=== PATIENT | female | born 1940 | race Caucasian/White ===

== ENCOUNTER 2025-01-19 20:51 | Inpatient (IN) | payer MEDICARE, BC ==
[~2025-01-19] VITALS: Ht 152.4 cm; Wt 62.8 kg
--- NOTE | 2025-01-19 23:12 | DVH ---
EXAM: XY R FEMUR XRAY HISTORY: Fall/trauma COMPARISON: None TECHNIQUE: AP and lateral views of the right femur were performed. FINDINGS/IMPRESSION: Mildly displaced subcapital right femoral neck fracture.
--- NOTE | 2025-01-19 23:46 | ED.PDOC ---
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 Patient resides at a nursing facility when she slipped out of her wheelchair and landed on her right hip region. EMS stated the patient was able to stand upright and denied any lays shortening. Patient states continued pain in the right leg and hip at time evaluation. 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 Vital signs were stable on arrival. No blood loss or head trauma noted. Chief Complaint: Lower Extremity Time Seen by MD: 21:13 Reviewed Notes: Nurses Notes, Director [employer] Notes Allergies: Coded Allergies: NO KNOWN ALLERGIES (Unverified , 01/19/25) Information Source: Patient, Emergency Med Personnel Mode of Arrival: EMS Location: Right Extremity Location: Leg Timing: Hours Prehospital treatment: None Severity: Moderate Able to Move Extremity: Yes Bear Weight: Limited Pain: Mild Hand Dominance: Right Mechanism: Blunt Trauma Circumstances: Fall Onset of Symptoms: After Trauma Symptoms: Pain DVT Risk Factors: NONE Past Medical History PAST MEDICAL HISTORY: Alzheimer Surgical History: Denies all surgeries CONTACT LENS POLISHER History: No Pertinent CONTACT LENS POLISHER History Family History Family History: Reviewed,noncontributory to illness, No family hx of Cancer, No family hx of DM, No family hx of Heart sylvia, No family hx of HTN, No family hx ofKidney sylvia, No family hx of Liver sylvia, No family hx of Lung sylvia, No family hx of Stroke Social History Smoker: Non-Smoker Alcohol: Denies ETOH Use Drugs: Denies Drug Use Lives In: Jail Constitutional: denies: chills, diaphoresis, fatigue, fever, malaise, sweats, weakness, others EENTM: denies: blurred vision, double vision, ear bleeding, ear discharge, ear drainage, ear pain, ear ringing, eye pain, eye redness, hearing loss, mouth p ain, mouth swelling, nasal discharge, nose bleeding, nose congestion, nose pain, photophobia, tearing, throat pain, throat swelling, voice changes, others Respiratory: denies: cough, hemoptysis, orthopnea, SOB at rest, shortness of br eath, SOB with excertion, stridor, wheezing, others Cardiovascular: denies: chest pain, dizzy spells, diaphoresis, Dyspnea on exertion, edema, irregular heart beat, left arm pain, lightheadedness, palpitations, PND, syncope, others Gastrointestinal: denies: abdomen distended, abdominal pain, blood streaked bowels, constipated, diarrhea, dysphagia, difficulty swallowing, hematemesis, melena, nausea, poor appetite, poor fluid intake, rectal bleeding, rectal pain, vomiting, others Genitourinary: denies: abnormal vagina bleeding, burning, dyspareunia, dysuria, flank pain, frequency, hematuria, incontinence, pain, , vagina discharge, urgency, others Neurological: denies: dizziness, fainting, headache, left sided numbness, left sided weakness, numbness, paresthesia, pre-existing deficit, right sided numbness, right sided weakness, seizure, speech problems, tingling, tremors, weakness, others Musculoskeletal: reports: others (Right upper leg and hip pain concerns.); denies: back pain, gout, joint pain, joint swelling, muscle pain, muscle stiffness, neck pain Integumetry: denies: bruises, change in color, change in hair/nails, dryness, laceration, lesions, lumps, rash, wounds, others Allergic/Immunocompromised: denies: Difficulty Healing, Frequent Infections, Hives, Itching, others Hematologic/Lymphatic: denies: anemia, blood clots, easy bleeding, easy bruising, swollen glands, others Endocrine: denies: excessive hunger, excessive sweating, excessive thirst, excessive urination, flushing, intolerance to cold, intolerance to heat, unexplained weight gain, unexplained weight loss, others Psychiatric: denies: anxiety, bipolar disorder, depression, hopeless, panic disorder, schizophrenia, sleepless, suicidal, others Physical Exam General Appearance: Mild Distress (Patient appears to be only in mild distress as long as she does not move. Patient declined any pain medication at this time.), Normal HEENT: Normal ENT Inspection, Pharynx Normal, TMs Normal Neck: Full Range of Motion, Non-Tender, Normal, Normal Inspection Respiratory: Chest Non-Tender, Lungs Clear, No Accessory Muscle Use, No Respiratory Distress, Normal Breath Sounds Cardiovascular: No Edema, No JVD, No Murmur, No Gallop, Normal Peripheral Pulses, Regular Rate/Rhythm Breast Exam: Deferred Gastrointestinal: No Organomegaly, Non Tender, No Pulsatile Mass, Normal Bowel Sounds, Soft Genitalia: Deferred Pelvic: Deferred Rectal: Deferred Extremities: Other (Diffuse right lateral leg and hip tenderness to palpation throughout. Moderate reduced range of motion. No shortening or internal rotation noted. No ecchymosis.) Neurologic: NOT DONE Cerebellar Function: NOT DONE Reflexes: NOT DONE Skin: Dry, Normal Color, Warm Lymphatic: No Adenopathy Was a procedure done? Was a procedure done?: No Differential Diagnosis EXT Differential Diagnosis: Fracture, Contusion X-Ray, Labs, Meds, VS Vital Signs Date Time Temp Pulse Resp B/P (MAP) Pulse Ox O2 Delivery O2 Flow Rate FiO2 01/19/25 21:41 98.6 94 16 135/84 (101) 100 X-Ray, Labs, Meds, VS Comment All studies performed the ED were evaluated by me personally. X-ray series of the right femur revealed a mildly displaced subcapital right femoral neck fracture. Patient will be admitted for management with transferred to a [facility] facility once in his deemed appropriate. Time of 1ST Reevaluation: 23:45 Reevaluation 1ST: Unchanged Consultation: PCP Patient Education/Counseling: Diagnosis, Treatment Family Education/Counseling: Diagnosis, Treatment Departure 1 Departure Time of Disposition: 23:45 Impression: Primary Impression: Subcapital fracture of neck of right femur Disposition: ADMITTED INPATIENT Condition: Fair Discharged With: Self Critical Care Note Critical Care Time?: No Stability Stability form required: No Heart Score Heart Score: Heart Score Response (Comments) Value History N/A 0 EKG N/A 0 Age N/A 0 Risk Factors N/A 0 Troponin N/A 0 Total 0 GT BRAY PAC Jan 19, 2025 23:46
[2025-01-19 23:59] LABS: Urine Bacteria None Seen /hpf (None Seen); Urine Blood Negative /uL (Negative); Urine Budding Yeast OCCASIONAL /hpf (None Seen); Urine Clarity Turbid (Clear); Urine Color Light-Yellow (Yellow); Urine Mucus FEW (None Seen); Urine Protein, UAD TRACE (Negative); Urine Specific Gravity 1.033 (1.001-1.035); Urine Squamous Epithelial Cell FEW /hpf (<5); Urine Urobilinogen Normal (Negative); Urine WBC 4 /HPF (0-5); Urine pH 6.5 (5.0-9.0)
[2025-01-20 00:15] LABS: Basophils # (auto) 0.1 10 ^3/uL (0-0.2); Basophils % (auto) 0.6 % (0.0-2.0); Eosinophils # (auto) 0.2 10 ^3/uL (0-0.8); Eosinophils % (auto) 1.6 % (0.0-7.0); Hematocrit 42.5 % (36.0-46.0); Hemoglobin 13.9 g/dL (12.2-16.2); Lymphocytes # (auto) 2.2 10 ^3/uL (0.4-5.4); Lymphocytes % (auto) 15.6 % (10.0-50.0); Mean Corpuscular Hemoglobin 28.5 pg (28.0-32.0); Mean Corpuscular Hgb Conc. 32.6 g/dL (32.0-36.0); Mean Corpuscular Volume 87.5 fL (80.0-100.0); Monocytes # (auto) 0.6 10 ^3/uL (0-1.3); Monocytes % (auto) 4.1 % (0.0-12.0); Neutrophils # (auto) 11.2 10 ^3/uL (1.6-8.6); Neutrophils % (auto) 78.1 % (37.0-80.0); Nucleated Red Blood Cells % 0.1 %; Platelet Count (auto) 231 10^3/uL (140-450); Red Blood Cells 4.86 10^6/uL (4.0-5.20); Red Cell Distribution Width 14.2 % (11.8-14.3); White Blood Cell 14.4 10^3/uL (4.4-10.8)
[2025-01-20 00:28] LABS: Alanine Aminotransferase 15 U/L (7-40); Albumin 4.6 g/dL (3.2-4.8); Alkaline Phosphatase 73 U/L (46-116); Anion Gap 7 (5-15); Aspartate Aminotransferase 24 U/L (13-40); BUN/Creatinine Ratio 25.7 (10.0-20.0); Bilirubin, Total 0.4 mg/dL (0.2-1.0); Blood Urea Nitrogen 18 mg/dL (9-23); Calcium 9.8 mg/dL (8.7-10.4); Carbon Dioxide 28 mmol/L (20-31); Chloride 106 mmol/L (98-107); Glucose 99 mg/dL (74-106); Potassium 3.6 mmol/L (3.5-5.1); Sodium 141 mmol/L (136-145); Total Protein 7.4 g/dL (5.7-8.2)
[2025-01-20 01:50] VITALS: PULSE 88; RESP 18; O2SAT 98
[2025-01-20] MEDS: ONDANSETRON HCL 4 MG/2 ML VIAL IV ONE (02:15)
[2025-01-20] MEDS: MORPHINE SULFATE 4 MG/ML SYR/VIAL IV ONE (02:15)
[2025-01-20] MEDS: HALOPERIDOL LACTATE 5 MG/ML INJ VIAL ONE (02:45)
[2025-01-20] MEDS: QUEtiapine FUMARATE 25 MG TAB PO ONE (03:45)
[2025-01-20] MEDS: cefTRIAXone 1GM/50ML D5W 50 ML IV ONE (04:00)
[2025-01-20] MEDS ORDERED: DOCUSATE SOD 100 MG CAP PO PRN (04:00)
[2025-01-20] MEDS ORDERED: NITROGLYCERIN 0.4 MG SL TAB SL PRN (04:00)
--- NOTE | 2025-01-20 04:03 | DVHHP2 ---
History of Present Illness Reason for Visit: Subcapital fracture of neck of right femur History of Present Illness The patient is a 84-year-old female with past medical history of Alzheimer disease who presented to [facility] ED for evaluation of fall with injury. As reported, patient was complaining of right leg and hip pain status post ground level fall at nursing facility where she resides. Patient slipped out of her wheelchair and landing on her right hip with sustained injury. Patient was seen and evaluated in the ED, laboratory data shows WBC 14.4, platelets 231, sodium 141, potassium 3.6, BUN 18, creatinine 0.70, GFR 85, glucose 99, troponin 3, blood pressure 130/80, heart rate 82, temperature 98.6 F, O2 saturation 99% on room air. Right femur x-ray revealing mildly displaced subcapital right femoral neck fracture. Patient was given IV morphine sulfate 4 mg x 1, please see medication orders section in the computer. On my assessment, patient denied chest pain, no headache, no dizziness, no shortness a breath, no nausea, no vomiting, no fever, no chills. Patient was admitted for further evaluation and medical management. Past Medical History Alzheimer Past Surgical History Denies all surgeries Family History Reviewed, noncontributory to the management of this case. Past Social History The patient lives at home, denies smoking, alcohol or illicit drugs abuse. Review of Systems Constitutional: No: Fever, Chills, Sweats, Weakness, Malaise, Other Eyes: No: Pain, Vision change, Conjunctivae inflammation, Eyelid inflammation, Other, Redness ENT: No: Ear pain, Ear discharge, Nose pain, Nose discharge, Nose congestion, Mouth pain, Mouth swelling, Throat pain, Throat swelling, Other Respiratory: No: Cough, Dry, Shortness of breath, SOB with excertion, Wheezing, Hemoptysis, Pleuritic Pain, Sputum, Wheezing, Other Cardiovascular: No: Chest Pain, Palpitations, Orthopnea, Paroxysmal Noc. Dyspnea, Edema, Lt Headedness, Other Gastrointestinal: No: Nausea, Vomiting, Abdominal Pain, Diarrhea, Constipation, Melena, Hematochezia, Other Genitourinary: No Dysuria, No Frequency, No Incontinence, No Hematuria, No Retention, No Other Musculoskeletal: other (Right upper leg and hip pain.) Skin: No: Rash, Lesions, Jaundice, Bruising, Other Neurological: No: Weakness, Numbness, Incoordination, Change in speech, Confusion, Seizures, Other Allergies: Coded Allergies: NO KNOWN ALLERGIES (Unverified , 01/19/25) Exam Vital Signs Vital Signs Date Time Temp Pulse Resp B/P (MAP) Pulse Ox O2 Delivery O2 Flow Rate FiO2 01/20/25 02:15 82 16 130/80 01/19/25 21:41 98.6 100 General Appearance: Alert, Oriented X3, No acute distress HEENT: Atraumatic, PERRLA, EOMI, Mucous membr. moist/pink Respiratory: Clear to auscultation, Normal air movement Cardiovascular: Regular rate, Normal S1, Normal S2, No murmurs Abdominal: Normal bowel sounds, Soft, No tenderness, No hepatospenomegaly, No masses Extremities: No clubbing, No cyanosis, No edema, Normal pulses, Other (Right hip tenderness) Skin: No rashes, No breakdown, No significant lesion Neuro: Normal gait, Normal speech, Strength at 5/5 X4 ext, Normal tone, Sensation intact, Cranial nerves 3-12 NL, Reflexes 2+ Psych/Mental Status: Mental status NL, Mood NL Labs/Xrays Labs Test 01/20/25 00:56 01/19/25 23:55 01/19/25 23:46 Range/Units Troponin I High Sensitivity 4 </=34 ng/L White Blood Count 14.4 H 4.4-10.8 10^3/uL Red Blood Count 4.86 4.0-5.20 10^6/uL Hemoglobin 13.9 12.2-16.2 g/dL Hematocrit 42.5 36.0-46.0 % Mean Corpuscular Volume 87.5 80.0-100.0 fL Mean Corpuscular Hemoglobin 28.5 28.0-32.0 pg Mean Corpuscular Hemoglobin Concent 32.6 32.0-36.0 g/dL Red Cell Distribution Width 14.2 11.8-14.3 % Platelet Count 231 140-450 10^3/uL Mean Platelet Volume 7.5 6.9-10.8 fL Neutrophils (%) (Auto) 78.1 37.0-80.0 % Lymphocytes (%) (Auto) 15.6 10.0-50.0 % Monocytes (%) (Auto) 4.1 0.0-12.0 % Eosinophils (%) (Auto) 1.6 0.0-7.0 % Basophils (%) (Auto) 0.6 0.0-2.0 % Neutrophils # (Auto) 11.2 H 1.6-8.6 10 ^3/uL Lymphocytes # (Auto) 2.2 0.4-5.4 10 ^3/uL Monocytes # (Auto) 0.6 0-1.3 10 ^3/uL Eosinophils # (Auto) 0.2 0-0.8 10 ^3/uL Basophils # (Auto) 0.1 0-0.2 10 ^3/uL Nucleated Red Blood Cells 0.1 % Sodium Level 141 136-145 mmol/L Potassium Level 3.6 3.5-5.1 mmol/L Chloride Level 106 98-107 mmol/L Carbon Dioxide Level 28 20-31 mmol/L Anion Gap 7 5-15 Blood Urea Nitrogen 18 9-23 mg/dL Creatinine 0.70 0.550-1.02 mg/dL Glomerular Filtration Rate Calc 85 >90 mL/min BUN/Creatinine Ratio 25.7 H 10.0-20.0 Serum Glucose 99 74-106 mg/dL Lactic Acid Level 1.1 0.4-2.0 mmol/L Calcium Level 9.8 8.7-10.4 mg/dL Total Bilirubin 0.4 0.2-1.0 mg/dL Aspartate Amino Transferase (AST) 24 13-40 U/L Alanine Aminotransferase (ALT) 15 7-40 U/L Alkaline Phosphatase 73 46-116 U/L Total Protein 7.4 5.7-8.2 g/dL Albumin 4.6 3.2-4.8 g/dL Urine Color Light-yellow Yellow Urine Clarity Turbid H Clear Urine pH 6.5 5.0-9.0 Urine Specific Gervais 1.033 1.001-1.035 Urine Protein Trace H Negative Urine Ketones Negative Negative Urine Blood Negative Negative /uL Urine Nitrite Negative Negative Urine Bilirubin Negative Negative Urine Urobilinogen Normal Negative mg/dL Urine Leukocyte Esterase Negative Negative /uL Urine RBC 2 0 - 4 /hpf Urine Microscopic WBC 4 0-5 /HPF Urine Squamous Epithelial Cells Few <5 /hpf Urine Bacteria None seen None Seen /hpf Urine Mucus Few None Seen Urine Yeast (Budding) Occasional None Seen /hpf Urine Glucose Normal Normal mg/dL PATIENT: EDGARKENNY BORRERO ACCT: [id number] UNIT: [id number] : 1940 LOC: ER ROOM / BED: / AGE / SEX: 84 / F ADM STATUS: REG ER SERVICE 18 ORDERING PHYSICIAN: GT BRAY PAC PROCEDURE(s): RFEM - R FEMUR XRAY REASON: Fall/trauma ORDER NUMBER(s): [id number], ACCESSION NUMBER(s): [id number] EXAM: XY R FEMUR XRAY HISTORY: Fall/trauma COMPARISON: None TECHNIQUE: AP and lateral views of the right femur were performed. FINDINGS/IMPRESSION: Mildly displaced subcapital right femoral neck fracture. Assessment/Plan Assessment/Plan Subcapital fracture of neck of right femur Fall with injury Alzheimer disease Generalized weakness Leukocytosis, unspecified Plan 1. Admit to telemetry unit 2. Breathing treatment 3. Pain control management 4. IV antibiotic management 5. Management of fluids and electrolytes 6. Consultation for orthopedic 7. Diagnostic test right femur x-ray 8. DVT prophylaxis-on Lovenox 9. Repeat labs CBC, CMP in a.m. 10. Home medication reviewed and reconciled 11. Continue with current medical management 12. Treatment plan discussed with patient and RN. Patient verbalized understanding. Plan discussed with: Patient, Other (RN) My Orders Orders - MARIO POLLOCK DNP Procedure Category Date Status Time * Orthopedic Consult CONS 01/20/25 Verified 03:56 Complete Blood Count LAB 01/20/25 Verified 03:56 Comprehensive LAB 01/20/25 Verified Metabolic Panel 03:56 Ceftriaxone Ivpb PHA 01/20/25 Verified Rocephin 09:00 Ceftriaxone Ivpb PHA 01/20/25 Verified Rocephin 04:00 Admit ADMIT 01/20/25 Verified 03:56 Allergies EVA 01/20/25 Verified 03:56 Code Status CODE 01/20/25 Verified 03:56 Sodium Chloride Lock PHA 01/20/25 Verified (Saline Lock Ns) 06:00 Oxygen Per Hour RT 01/20/25 Verified 03:56 Hydrocodone-Acet PHA 01/20/25 Verified 5/325mg Tab ([place] 04:00 Ondansetron Hcl PHA 01/20/25 Verified (Zofran) 04:00 Docusate Sodium PHA 01/20/25 Verified Capsule (Colace 04:00 Enoxaparin Sodium PHA 01/20/25 Verified (Lovenox) 10:00 Fall Risk Precautions [facility] 01/20/[address] 03:56 Complete Blood Count LAB 01/21/25 Verified 04:00 Comprehensive LAB 01/21/25 Verified Metabolic Panel 04:00 Cardiac DIET 01/20/25 Verified Diet-2gna,Lofat,Lochol Breakfast Condition: Serious EVA 01/20/25 Verified 03:56 Acetaminophen Tablet [facility] 01/20/25 Verified (Tylenol Tablet) 04:00 Sequential EVA 01/20/25 Verified Compression Device Nitroglycerin [facility] 01/20/25 Verified Sublingual (Ntrostat 04:00 Morphine Sulfate PHA 01/20/25 Verified Injection 04:00 Notify Md Of Changes [facility] 01/20/25 Verified From Base 03:56 Paper Tester For [facility] 01/20/25 Verified 24 Hours 03:56 Emergency Dysrhythmia [facility] 01/20/25 Verified Protocol 03:56 Rhythm Strips Once [facility] 01/20/25 Verified Every Shift 03:56 Oxygen By Nasal RT 01/20/25 Verified Cannula 03:56 Problem List: (1) Subcapital fracture of neck of right femur (2) Fall with injury (3) Alzheimers disease (4) Generalized weakness (5) Leukocytosis, unspecified Date of Service: Jan 20, 2025 Billing Provider: MARIO POLLOCK DNP Common Visit Codes: [id number] INP/OBS CARE (HIGH) MARIO POLLOCK DNP Jan 20, 2025 04:03
[2025-01-20 04:30] LABS: Basophils # (auto) 0.1 10 ^3/uL (0-0.2); Basophils % (auto) 0.5 % (0.0-2.0); Eosinophils # (auto) 0.1 10 ^3/uL (0-0.8); Eosinophils % (auto) 0.6 % (0.0-7.0); Hematocrit 38.1 % (36.0-46.0); Hemoglobin 12.5 g/dL (12.2-16.2); Lymphocytes # (auto) 1.1 10 ^3/uL (0.4-5.4); Lymphocytes % (auto) 10.5 % (10.0-50.0); Mean Corpuscular Hemoglobin 28.5 pg (28.0-32.0); Mean Corpuscular Hgb Conc. 32.9 g/dL (32.0-36.0); Mean Corpuscular Volume 86.7 fL (80.0-100.0); Monocytes # (auto) 0.4 10 ^3/uL (0-1.3); Monocytes % (auto) 4.1 % (0.0-12.0); Neutrophils % (auto) 84.3 % (37.0-80.0); Nucleated Red Blood Cells % 0.1 %; Platelet Count (auto) 198 10^3/uL (140-450); Red Blood Cells 4.39 10^6/uL (4.0-5.20); Red Cell Distribution Width 14.5 % (11.8-14.3); White Blood Cell 10.7 10^3/uL (4.4-10.8)
[2025-01-20 04:45] LABS: Alanine Aminotransferase 13 U/L (7-40); Albumin 3.9 g/dL (3.2-4.8); Alkaline Phosphatase 63 U/L (46-116); Anion Gap 9 (5-15); Aspartate Aminotransferase 22 U/L (13-40); BUN/Creatinine Ratio 26.7 (10.0-20.0); Bilirubin, Total 0.5 mg/dL (0.2-1.0); Blood Urea Nitrogen 16 mg/dL (9-23); Calcium 9.3 mg/dL (8.7-10.4); Carbon Dioxide 25 mmol/L (20-31); Potassium 3.7 mmol/L (3.5-5.1); Sodium 141 mmol/L (136-145); Total Protein 6.4 g/dL (5.7-8.2)
[2025-01-20 04:58] LABS: Chloride 107 mmol/L (98-107); Glucose 118 mg/dL (74-106)
[2025-01-20] MEDS: MORPHINE SULFATE INJ 2 MG/ml SYRG IV PRN (05:03)
[2025-01-20] MEDS: cefTRIAXone 1GM/50ML D5W 50 ML IV SCH (05:03)
[2025-01-20] MEDS: ONDANSETRON HCL 4 MG/2 ML VIAL IV PRN (05:04)
[2025-01-20] MEDS: SODIUM CHLOR 0.9% PF (SALINE LOCK) 10ML VIAL/SYR IV SCH (06:10)
[2025-01-20 10:12] VITALS: PULSE 88; RESP 18; O2SAT 100
[2025-01-20] MEDS: ENOXAPARIN SOD 40 MG/0.4 ML SYRINGE SC SCH (11:25)
--- NOTE | 2025-01-20 13:35 | DVHPN2 ---
Reviewed: Care Plan, H&P, Labs, Medications, Previous Orders, Radiology Changes from previous H/P or p: No Changes Eyes: No Pain, No Vision change, No Conjunctivae inflammation, No Eyelid inflammation, No Other, No Redness ENT: No Ear pain, No Ear discharge, No Nose pain, No Nose discharge, No Nose congestion, No Mouth pain, No Mouth swelling, No Throat pain, No Throat swelling, No Other Cardiovascular: No Chest Pain, No Palpitations, No Orthopnea, No Paroxysmal Noc. Dyspnea, No Edema, No Lt Headedness, No Other Respiratory: No Cough, No Dry, No Shortness of breath, No SOB with excertion, No Wheezing, No Hemoptysis, No Pleuritic Pain, No Sputum, No Other Gastrointestinal: No Nausea, No Vomiting, No Abdominal Pain, No Diarrhea, No Constipation, No Melena, No Hematochezia, No Other Genitourinary: No Dysuria, No Frequency, No Incontinence, No Hematuria, No Retention, No Other Musculoskeletal: other (Right upper leg and hip pain.) Skin: No Rash, No Lesions, No Jaundice, No Bruising, No Other Objective Vitals Vital Signs Date Time Temp Pulse Resp B/P (MAP) Pulse Ox O2 Delivery O2 Flow Rate FiO2 01/20/25 12:00 93 16 151/72 (98) 99 01/20/25 10:12 97.8 97.8 01/20/25 10:12 Nasal Cannula* 2 28 Medications Current Medications Medications Dose Ordered Sig/Jimmie Route Start Time Stop Time Status Last Admin Dose Admin Ceftriaxone Sodium 50 ml @ 100 mls/hr DAILY@0400 IV 01/21/25 04:00 01/20/25 05:03 100 MLS/HR Sodium Chloride 10 ml Q8HR IV 01/20/25 06:00 01/20/25 06:10 10 ML Acetaminophen/ Hydrocodone Bitart 1 tab Q4HP PRN PO 01/20/25 04:00 Ondansetron HCl 4 mg Q4HP PRN IV 01/20/25 04:00 01/20/25 05:04 4 MG Docusate Sodium 100 mg BIDPRN PRN PO 01/20/25 04:00 Enoxaparin Sodium 40 mg DAILY SC 01/20/25 10:00 01/20/25 11:25 40 MG Acetaminophen 650 mg Q6HP PRN PO 01/20/25 04:00 Nitroglycerin 0.4 mg Q5MINP PRN SL 01/20/25 04:00 Morphine Sulfate 2 mg Q30M PRN IV 01/20/25 04:00 01/20/25 05:03 2 MG Laboratory Results Laboratory Tests 01/20/25 04:14 Chemistry Test 01/19/25 23:55 01/20/25 04:14 Albumin 4.6 g/dL (3.2-4.8) 3.9 g/dL (3.2-4.8) Calcium Level 9.8 mg/dL (8.7-10.4) 9.3 mg/dL (8.7-10.4) Total Protein 7.4 g/dL (5.7-8.2) 6.4 g/dL (5.7-8.2) LFT Test 01/19/25 23:55 01/20/25 04:14 Alanine Aminotransferase (ALT) 15 U/L (7-40) 13 U/L (7-40) Alkaline Phosphatase 73 U/L (46-116) 63 U/L (46-116) Aspartate Amino Transferase (AST) 24 U/L (13-40) 22 U/L (13-40) Total Bilirubin 0.4 mg/dL (0.2-1.0) 0.5 mg/dL (0.2-1.0) Urinalysis Test 01/19/25 23:46 Urine Color Light-yellow (Yellow) Urine Clarity Turbid (Clear) H Urine pH 6.5 (5.0-9.0) Urine Specific Perry 1.033 (1.001-1.035) Urine Protein Trace (Negative) H Urine Ketones Negative (Negative) Urine Blood Negative /uL (Negative) Urine Nitrite Negative (Negative) Urine Bilirubin Negative (Negative) Urine Urobilinogen Normal mg/dL (Negative) Urine Leukocyte Esterase Negative /uL (Negative) Urine RBC 2 /hpf (0 - 4) Urine Microscopic WBC 4 /HPF (0-5) Urine Squamous Epithelial Cells Few /hpf (<5) Urine Bacteria None seen /hpf (None Seen) Urine Mucus Few (None Seen) Urine Yeast (Budding) Occasional /hpf (None Urine Glucose Normal mg/dL (Normal) Labs and/or images reviewed: Labs reviewed by me, Image(s) reviewed by me Assessment/Plan Assessment/Plan Subcapital fracture neck of right femur consult for Rock Bowman Sepsis secondary to urinary tract infection: Blood cultures urine cultures Rocephin Fall with injury Alzheimer disease Generalized weakness Moderate malnutrition Time spent 45 minutes Patient is full code Advanced care planning time 20 minutes Plan discussed with: Patient My Orders Orders - ALPA JEREZ MD Procedure Category Date Status Time Blood Culture SAVANNAH 01/20/25 Logged 13:31 Urine Bacterial SAVANNAH 01/20/25 Logged Culture 13:31 * Orthopedic Consult CONS 01/20/25 Verified 13:32 Date of Service: Jan 20, 2025 Billing Provider: ALPA JEREZ MD Common Visit Codes: [id number] INP/OBS CARE(HIGH) Secondary Visit Codes: [id number] CARE PLAN 30 MINUTES ALPA JEREZ MD Jan 20, 2025 13:35
--- NOTE | 2025-01-20 15:22 | DVH ---
INDICATION: fx femur COMPARISON: None TECHNIQUE: CT of the right was performed without contrast. Volume transverse images were obtained and reconstructed in multiple planes using bone and soft tissue algorithms. CONTRAST: None Radiation Dose Information: CT Dose: CTDI volume is 7.91 mGy. Dose-length product is 177.29 mGy*cm FINDINGS: The alignment is normal. The joint spaces are normal. Mildly displaced subcapital fracture proximal right femur The soft tissues are normal. IMPRESSION: 1. Mildly displaced subcapital fracture proximal right femur. All CT scans at this medical facility are performed using dose modulation techniques as appropriate t o a performed exam including the following: Automated exposure control was utilized; adjustment of th e MA and/or KV according to patient size; and use of iterative reconstruction technique.
[2025-01-20 16:11] VITALS: BP 154/78; PULSE 95; RESP 18; TEMP 98.3; O2SAT 92
[2025-01-20 20:00] VITALS: PULSE 51; RESP 19; O2SAT 95
[2025-01-20 21:00] VITALS: BP 157/61; PULSE 51; RESP 19; TEMP 98.1; O2SAT 95
[2025-01-21] VITALS (9 sets, daily range): BP systolic 129–158; BP diastolic 72–99; PULSE 70–96; RESP 18–19; TEMP 97.9–98.3; O2SAT 90–98
--- NOTE | 2025-01-21 11:25 | DVHPN2 ---
Reviewed: Care Plan, H&P, Labs, Medications, Previous Orders, Radiology Changes from previous H/P or p: No Changes Eyes: No Pain, No Vision change, No Conjunctivae inflammation, No Eyelid inflammation, No Other, No Redness ENT: No Ear pain, No Ear discharge, No Nose pain, No Nose discharge, No Nose congestion, No Mouth pain, No Mouth swelling, No Throat pain, No Throat swelling, No Other Cardiovascular: No Chest Pain, No Palpitations, No Orthopnea, No Paroxysmal Noc. Dyspnea, No Edema, No Lt Headedness, No Other Respiratory: No Cough, No Dry, No Shortness of breath, No SOB with excertion, No Wheezing, No Hemoptysis, No Pleuritic Pain, No Sputum, No Other Gastrointestinal: No Nausea, No Vomiting, No Abdominal Pain, No Diarrhea, No Constipation, No Melena, No Hematochezia, No Other Genitourinary: No Dysuria, No Frequency, No Incontinence, No Hematuria, No Retention, No Other Musculoskeletal: other (Right upper leg and hip pain.) Skin: No Rash, No Lesions, No Jaundice, No Bruising, No Other Objective Vitals Vital Signs Date Time Temp Pulse Resp B/P (MAP) Pulse Ox O2 Delivery O2 Flow Rate FiO2 01/21/25 09:00 97.9 94 18 148/82 (104) 97 97.9 01/21/25 08:15 Nasal Cannula* 2 28 Intake/Output Intake and Output 01/21/25 07:00 Intake Total 60 ml Output Total 900 ml Balance -840 ml Intake Oral 60 ml Output Urine Total 900 ml Medications Current Medications Medications Dose Ordered Sig/Jimmie Route Start Time Stop Time Status Last Admin Dose Admin Ceftriaxone Sodium 50 ml @ 100 mls/hr DAILY@0400 IV 01/21/25 04:00 01/20/25 05:03 100 MLS/HR Sodium Chloride 10 ml Q8HR IV 01/20/25 06:00 01/21/25 06:31 10 ML Acetaminophen/ Hydrocodone Bitart 1 tab Q4HP PRN PO 01/20/25 04:00 Ondansetron HCl 4 mg Q4HP PRN IV 01/20/25 04:00 01/20/25 05:04 4 MG Docusate Sodium 100 mg BIDPRN PRN PO 01/20/25 04:00 Enoxaparin Sodium 40 mg DAILY SC 01/20/25 10:00 01/21/25 09:54 40 MG Acetaminophen 650 mg Q6HP PRN PO 01/20/25 04:00 Nitroglycerin 0.4 mg Q5MINP PRN SL 01/20/25 04:00 Morphine Sulfate 2 mg Q30M PRN IV 01/20/25 04:00 01/20/25 05:03 2 MG Laboratory Results Laboratory Tests 01/20/25 04:14 Urinalysis Test 01/19/25 23:46 Urine Color Light-yellow (Yellow) Urine Clarity Turbid (Clear) H Urine pH 6.5 (5.0-9.0) Urine Specific [place] 1.033 (1.001-1.035) Urine Protein Trace (Negative) H Urine Ketones Negative (Negative) Urine Blood Negative /uL (Negative) Urine Nitrite Negative (Negative) Urine Bilirubin Negative (Negative) Urine Urobilinogen Normal mg/dL (Negative) Urine Leukocyte Esterase Negative /uL (Negative) Urine RBC 2 /hpf (0 - 4) Urine Microscopic WBC 4 /HPF (0-5) Urine Squamous Epithelial Cells Few /hpf (<5) Urine Bacteria None seen /hpf (None Seen) Urine Mucus Few (None Seen) Urine Yeast (Budding) Occasional /hpf (None Urine Glucose Normal mg/dL (Normal) Labs and/or images reviewed: Labs reviewed by me, Image(s) reviewed by me Assessment/Plan Assessment/Plan Acute nondisplaced Subcapital fracture neck of right femur consult for [facility]man morphine Sepsis secondary to urinary tract infection: Blood cultures, urine cultures , continue Rocephin Fall with injury Alzheimer disease Generalized weakness Moderate malnutrition Time spent 45 minutes Patient is full code Advanced care planning time 20 minutes [facility] Grand daughter Chaya [phone] bedside Son and POA Bronson [phone] Plan discussed with: Patient My Orders Orders - ALPA JEREZ MD Procedure Category Date Status Time Blood Culture SAVANNAH 01/20/25 In Process 13:31 Urine Bacterial SAVANNAH 01/20/25 In Process Culture 13:31 * Orthopedic Consult CONS 01/20/25 Transmitted 13:32 Ct R Hip With Out CT 01/20/25 Resulted Contrast 14:24 Date of Service: Jan 21, 2025 Billing Provider: ALPA JEREZ MD Common Visit Codes: [id number] INP/OBS CARE(HIGH) ALPA JEREZ MD Jan 21, 2025 11:25
[2025-01-21 13:39] LABS: Basophils # (auto) 0 10 ^3/uL (0-0.2); Basophils % (auto) 0.4 % (0.0-2.0); Eosinophils # (auto) 0.1 10 ^3/uL (0-0.8); Eosinophils % (auto) 0.7 % (0.0-7.0); Hematocrit 39.1 % (36.0-46.0); Lymphocytes # (auto) 1.1 10 ^3/uL (0.4-5.4); Lymphocytes % (auto) 13.8 % (10.0-50.0); Mean Corpuscular Hemoglobin 28.7 pg (28.0-32.0); Mean Corpuscular Hgb Conc. 33.2 g/dL (32.0-36.0); Mean Corpuscular Volume 86.3 fL (80.0-100.0); Monocytes # (auto) 0.6 10 ^3/uL (0-1.3); Monocytes % (auto) 6.9 % (0.0-12.0); Neutrophils # (auto) 6.3 10 ^3/uL (1.6-8.6); Neutrophils % (auto) 78.2 % (37.0-80.0); Nucleated Red Blood Cells % 0.1 %; Platelet Count (auto) 194 10^3/uL (140-450); Red Blood Cells 4.53 10^6/uL (4.0-5.20); Red Cell Distribution Width 13.9 % (11.8-14.3)
[2025-01-21 13:57] LABS: Alanine Aminotransferase 13 U/L (7-40); Albumin 3.8 g/dL (3.2-4.8); Alkaline Phosphatase 66 U/L (46-116); Anion Gap 7 (5-15); Aspartate Aminotransferase 25 U/L (13-40); BUN/Creatinine Ratio 21.2 (10.0-20.0); Blood Urea Nitrogen 14 mg/dL (9-23); Calcium 9.2 mg/dL (8.7-10.4); Carbon Dioxide 30 mmol/L (20-31); Chloride 102 mmol/L (98-107); Potassium 3.9 mmol/L (3.5-5.1); Sodium 139 mmol/L (136-145)
[2025-01-21 13:58] LABS: Bilirubin, Total 0.7 mg/dL (0.2-1.0); Total Protein 6.3 g/dL (5.7-8.2)
[2025-01-21 14:00] LABS: Glucose 111 mg/dL (74-106)
[2025-01-21] MEDS ORDERED: QUET25TA37 PO (16:32)
[2025-01-21] MEDS ORDERED: MEMA1TAB3 PO (16:33)
[2025-01-22] VITALS (8 sets, daily range): BP systolic 123–154; BP diastolic 62–88; PULSE 85–104; RESP 17–19; TEMP 98–98.9; O2SAT 92–98
[2025-01-22] MEDS: HYDROcodone-ACET 5/325MG TAB PO PRN (00:07)
--- NOTE | 2025-01-22 07:09 | DVHINCON2 ---
Date of service: Jan 21, 2025 Reason for Consultation Right femoral neck fracture History of Present Illness 84 yo F with pain in right hip/ hx of dementia/ patient does bear weight on right leg/ no cp/sob/abd pain/nasuea Past Medical History Past Medical History Alzheimer Past Surgical History Denies all surgeries Family History Reviewed, noncontributory to the management of this case. Past Social History The patient lives at home, denies smoking, alcohol or illicit drugs abuse. Family History: Chronic obstructive pulmonary disease G8 FATHER Allergies: Coded Allergies: NO KNOWN ALLERGIES (Unverified , 01/19/25) Home Meds Reported Medications Memantine Hydrochloride (Memantine HCl) 5 Mg Tab, 5 MG PO DAILY, TAB 01/21/25 Quetiapine Fumerate (Seroquel) 25 Mg Tab, 25 MG PO BID for 30 Days, MG 01/21/25 Review of Systems 10 point ROS is neg except per HPI Vital Signs Vital Signs Date Time Temp Pulse Resp B/P (MAP) Pulse Ox O2 Delivery O2 Flow Rate FiO2 01/22/25 05:00 98.0 85 17 123/62 (82) 95 98.0 01/21/25 20:00 Nasal Cannula* 2 28 Physical Exam NAD dementia RLE: no rotational deformity +ta/gs/ehl/fhl foot wwp Labs/Diagnostic Data Labs Test 01/21/25 13:00 01/20/25 00:56 01/19/25 23:55 01/19/25 23:46 Range/Units White Blood Count 8.0 # 4.4-10.8 10^3/uL Red Blood Count 4.53 4.0-5.20 10^6/uL Hemoglobin 13.0 12.2-16.2 g/dL Hematocrit 39.1 36.0-46.0 % Mean Corpuscular Volume 86.3 80.0-100.0 fL Mean Corpuscular Hemoglobin 28.7 28.0-32.0 pg Mean Corpuscular Hemoglobin Concent 33.2 32.0-36.0 g/dL Red Cell Distribution Width 13.9 11.8-14.3 % Platelet Count 194 140-450 10^3/uL Mean Platelet Volume 7.7 6.9-10.8 fL Neutrophils (%) (Auto) 78.2 37.0-80.0 % Lymphocytes (%) (Auto) 13.8 10.0-50.0 % Monocytes (%) (Auto) 6.9 0.0-12.0 % Eosinophils (%) (Auto) 0.7 0.0-7.0 % Basophils (%) (Auto) 0.4 0.0-2.0 % Neutrophils # (Auto) 6.3 1.6-8.6 10 ^3/uL Lymphocytes # (Auto) 1.1 0.4-5.4 10 ^3/uL Monocytes # (Auto) 0.6 0-1.3 10 ^3/uL Eosinophils # (Auto) 0.1 0-0.8 10 ^3/uL Basophils # (Auto) 0 0-0.2 10 ^3/uL Nucleated Red Blood Cells 0.1 % Sodium Level 139 136-145 mmol/L Potassium Level 3.9 3.5-5.1 mmol/L Chloride Level 102 98-107 mmol/L Carbon Dioxide Level 30 20-31 mmol/L Anion Gap 7 5-15 Blood Urea Nitrogen 14 9-23 mg/dL Creatinine 0.66 0.550-1.02 mg/dL Glomerular Filtration Rate Calc 86 >90 mL/min BUN/Creatinine Ratio 21.2 H 10.0-20.0 Serum Glucose 111 H 74-106 mg/dL Calcium Level 9.2 8.7-10.4 mg/dL Total Bilirubin 0.7 0.2-1.0 mg/dL Aspartate Amino Transferase (AST) 25 13-40 U/L Alanine Aminotransferase (ALT) 13 7-40 U/L Alkaline Phosphatase 66 46-116 U/L Total Protein 6.3 5.7-8.2 g/dL Albumin 3.8 3.2-4.8 g/dL Troponin I High Sensitivity 4 </=34 ng/L Lactic Acid Level 1.1 0.4-2.0 mmol/L Urine Color Light-yellow Yellow Urine Clarity Turbid H Clear Urine pH 6.5 5.0-9.0 Urine Specific [place] 1.033 1.001-1.035 Urine Protein Trace H Negative Urine Ketones Negative Negative Urine Blood Negative Negative /uL Urine Nitrite Negative Negative Urine Bilirubin Negative Negative Urine Urobilinogen Normal Negative mg/dL Urine Leukocyte Esterase Negative Negative /uL Urine RBC 2 0 - 4 /hpf Urine Microscopic WBC 4 0-5 /HPF Urine Squamous Epithelial Cells Few <5 /hpf Urine Bacteria None seen None Seen /hpf Urine Mucus Few None Seen Urine Yeast (Budding) Occasional None Seen /hpf Urine Glucose Normal Normal mg/dL Microbiology Date/Time Source Procedure Growth Status 01/20/25 15:25 Blood Blood Culture - Preliminary NO GROWTH AFTER 24 HOURS OF INCUBATION. Resulted 01/20/25 14:00 Voided Urine Urine Culture - Preliminary Resulted Plan/Recommendation 84 yo F with nondisplaced right femoral neck fracture 1. I had a long and thorough discussion with patient family regarding her condition. Nonoperative and operative management discussed in depth. Morbidity and mortality of hip fractures reviewed. Risks include but not exclusive to bleeding infection nerve injury hardware failure nonunion malunion chronic pain blood clots cardiac and pulmonary complications amputation and . They understand fracture may not heal and it may displace. 2. Plan for open reduction internal fixation of right hip fracture 3. NPO/IVF 4. pain control Plan discussed with: Patient BERLIN MCGINNIS MD Jan 22, 2025 07:09
--- NOTE | 2025-01-22 10:43 | DVHINCON2 ---
Date Seen: Jan 22, 2025 Referring Physician MD Tyrone Reason for Consultation Cardiac risk stratification History of Present Illness This is an 84-year-old female patient who presents to the emergency room status post mechanical fall. The patient comes from an assisted living facility "[facility]". The patient has a history of dementia and is unable to provide an accurate history. The patient's son who was at bedside was able to provide history. Per the patient's son, the patient sustained a mechanical fall at the assisted living facility where she resides. The nursing staff they are called emergency medical services and the patient was brought to the emergency room. Imaging has revealed a mildly displaced subcapital right femoral neck fracture. Cardiology has been consulted at this time for cardiac risk stratification. No twelve lead electrocardiogram done while in the emergency room. A twelve lead electrocardiogram was obtained at time of assessment and reveals normal sinus rhythm with inferior Q-waves. Significant past medical history includes dementia. The patient's son denies all other previous medical history. Past Medical History Past medical history reviewed. No other significant than mentioned above. Past Surgical History Patient's son states that the patient never has had any surgical history Family History: Chronic obstructive pulmonary disease G8 FATHER Family History Family history reviewed. Social History Denies the use of tobacco, alcohol or illicit drugs. Allergies: Coded Allergies: NO KNOWN ALLERGIES (Unverified , 01/19/25) Home Meds Reported Medications Memantine Hydrochloride (Memantine HCl) 5 Mg Tab, 5 MG PO DAILY, TAB 01/21/25 Quetiapine Fumerate (Seroquel) 25 Mg Tab, 25 MG PO BID for 30 Days, MG 01/21/25 Home Meds Home medications reviewed. Review of Systems Constitutional: No symptom reported Ears, Nose, & Throat: No symptom reported Eyes: No symptom reported Neurological: No symptoms reported Pulmonary/Respiratory: No symptoms reported Cardiovascular: No symptom reported Gastrointestinal: No symptom reported Genitourinary: No symptom reported Musculoskeletal: Right hip pain Skin: No symptom reported Psychiatric: No symptom reported Endocrine: No symptom reported Hematologic/Lymphatic: No symptom reported Vital Signs Vital Signs Date Time Temp Pulse Resp B/P (MAP) Pulse Ox O2 Delivery O2 Flow Rate FiO2 01/22/25 10:06 98.2 91 19 154/88 (110) 92 98.2 01/21/25 20:00 Nasal Cannula* 2 28 Physical Exam General Appearance: Cooperative. Thin Pulmonary/Respiratory: Clear, bilateral breaths sounds. Cardiovascular/Chest: Regular rate and rhythm. Peripheral Pulses: 2+ Radial (R). 2+ Radial (L). 2+ Pedal (R). 2+ Pedal (L) Abdominal Exam: Normal bowel sounds. Ankle Exam: Negative ankle edema Lower extremities: Negative lower extremity edema Neuro/Mental Status: A/OX0, confused Thoughts/Psych: Deferred Appearance: No acute distress. Skin Exam: Normal inspection. Normal color. Warm and dry. Labs/Diagnostic Data Labs Test 01/21/25 13:00 01/20/25 00:56 01/19/25 23:55 01/19/25 23:46 Range/Units White Blood Count 8.0 # 4.4-10.8 10^3/uL Red Blood Count 4.53 4.0-5.20 10^6/uL Hemoglobin 13.0 12.2-16.2 g/dL Hematocrit 39.1 36.0-46.0 % Mean Corpuscular Volume 86.3 80.0-100.0 fL Mean Corpuscular Hemoglobin 28.7 28.0-32.0 pg Mean Corpuscular Hemoglobin Concent 33.2 32.0-36.0 g/dL Red Cell Distribution Width 13.9 11.8-14.3 % Platelet Count 194 140-450 10^3/uL Mean Platelet Volume 7.7 6.9-10.8 fL Neutrophils (%) (Auto) 78.2 37.0-80.0 % Lymphocytes (%) (Auto) 13.8 10.0-50.0 % Monocytes (%) (Auto) 6.9 0.0-12.0 % Eosinophils (%) (Auto) 0.7 0.0-7.0 % Basophils (%) (Auto) 0.4 0.0-2.0 % Neutrophils # (Auto) 6.3 1.6-8.6 10 ^3/uL Lymphocytes # (Auto) 1.1 0.4-5.4 10 ^3/uL Monocytes # (Auto) 0.6 0-1.3 10 ^3/uL Eosinophils # (Auto) 0.1 0-0.8 10 ^3/uL Basophils # (Auto) 0 0-0.2 10 ^3/uL Nucleated Red Blood Cells 0.1 % Sodium Level 139 136-145 mmol/L Potassium Level 3.9 3.5-5.1 mmol/L Chloride Level 102 98-107 mmol/L Carbon Dioxide Level 30 20-31 mmol/L Anion Gap 7 5-15 Blood Urea Nitrogen 14 9-23 mg/dL Creatinine 0.66 0.550-1.02 mg/dL Glomerular Filtration Rate Calc 86 >90 mL/min BUN/Creatinine Ratio 21.2 H 10.0-20.0 Serum Glucose 111 H 74-106 mg/dL Calcium Level 9.2 8.7-10.4 mg/dL Total Bilirubin 0.7 0.2-1.0 mg/dL Aspartate Amino Transferase (AST) 25 13-40 U/L Alanine Aminotransferase (ALT) 13 7-40 U/L Alkaline Phosphatase 66 46-116 U/L Total Protein 6.3 5.7-8.2 g/dL Albumin 3.8 3.2-4.8 g/dL Troponin I High Sensitivity 4 </=34 ng/L Lactic Acid Level 1.1 0.4-2.0 mmol/L Urine Color Light-yellow Yellow Urine Clarity Turbid H Clear Urine pH 6.5 5.0-9.0 Urine Specific [place] 1.033 1.001-1.035 Urine Protein Trace H Negative Urine Ketones Negative Negative Urine Blood Negative Negative /uL Urine Nitrite Negative Negative Urine Bilirubin Negative Negative Urine Urobilinogen Normal Negative mg/dL Urine Leukocyte Esterase Negative Negative /uL Urine RBC 2 0 - 4 /hpf Urine Microscopic WBC 4 0-5 /HPF Urine Squamous Epithelial Cells Few <5 /hpf Urine Bacteria None seen None Seen /hpf Urine Mucus Few None Seen Urine Yeast (Budding) Occasional None Seen /hpf Urine Glucose Normal Normal mg/dL Microbiology Date/Time Source Procedure Growth Status 01/20/25 15:25 Blood Blood Culture - Preliminary NO GROWTH AFTER 24 HOURS OF INCUBATION. Resulted 01/20/25 14:00 Voided Urine Urine Culture - Preliminary Resulted Assessment Preprocedural cardiovascular examination Mildly displaced subcapital right femoral neck fracture Dementia Plan/Recommendation We will continue with the following plan/recommendations (Dr. Post): Transthoracic echocardiogram reveals EF of 65%. Revised cardiac risk index (Ld criteria): 1 point (6.0% risk of major cardiac event). Chest x-ray shows no ac elia cardiopulmonary disease. There is no underlying history of congestive heart failure, coronary artery disease, or equivalent of cardiac symptoms. Prior to admission, the patient has a fair functional capacity. Per Cardiology standpoint, the patient is at an acceptable risk for moderate risk surgery. There is no additional cardiac workup indicated prior to surgery. Thank you for allowing us to care for this patient. Please call with any questions or concerns. Critical care time spent: 40 minutes This medical document was created using an electronic medical record system with voice recognition software and computerized dictation system. Although this document has been carefully reviewed, there might still be some phonetic and typographical errors. Occasional wrong-word or ``sound-alike substitutions may have occurred due to the inherent limitations of voice recognition software. These areas are purely typographical due to imperfections of the software programs and do not reflect any compromise in the patient's medical care. Please read the chart carefully and recognize, using context, where these substitutions have occurred. Plan discussed with: Patient, Son NYHA Physical activity limitations: NA Date of Service: Jan 22, 2025 Billing Provider: MATIAS KHAN Cardiology Common Codes: [id number] INP/OBS CARE (High) Cardiology Consultation Codes: [id number] CONSULT <45MIN MATIAS KHAN Jan 22, 2025 10:43
[2025-01-22 11:22] LABS: INR 0.97 (0.9-1.15); Prothrombin Time 10.3 sec (9.3-11.8)
--- NOTE | 2025-01-22 11:22 | DVH ---
CHEST RADIOGRAPH Indication: preprocedural/pain Technique: Single frontal view of the chest was obtained Comparison: None FINDINGS: Lines and Tubes: None Lungs: No focal consolidation. Pleura: No effusion. No pneumothorax. Cardiomediastinal contours: Unremarkable Bones: No acute osseous abnormality. IMPRESSION: No acute cardiopulmonary disease.
[2025-01-22] MEDS ORDERED: KETAMINE 50mg/ML 1ml syringe ONE (12:42)
[2025-01-22] MEDS ORDERED: MIDAZOLAM HCL 2MG/2ML 2ml VIAL (1mg/ml) ONE (12:42)
[2025-01-22] MEDS ORDERED: ONDANSETRON HCL 4 MG/2 ML VIAL ONE (12:43)
[2025-01-22] MEDS ORDERED: GLYCOPYRROLATE 0.2 MG/ML 1ML VIAL ONE (12:43)
[2025-01-22] MEDS ORDERED: PROPOFOL 10 MG/ML 20 ML IV ONE (12:43)
--- NOTE | 2025-01-22 13:15 | DVHPN2 ---
Reviewed: Care Plan, H&P, Labs, Medications, Previous Orders, Radiology Changes from previous H/P or p: No Changes Eyes: No Pain, No Vision change, No Conjunctivae inflammation, No Eyelid inflammation, No Other, No Redness ENT: No Ear pain, No Ear discharge, No Nose pain, No Nose discharge, No Nose congestion, No Mouth pain, No Mouth swelling, No Throat pain, No Throat swelling, No Other Cardiovascular: No Chest Pain, No Palpitations, No Orthopnea, No Paroxysmal Noc. Dyspnea, No Edema, No Lt Headedness, No Other Respiratory: No Cough, No Dry, No Shortness of breath, No SOB with excertion, No Wheezing, No Hemoptysis, No Pleuritic Pain, No Sputum, No Other Gastrointestinal: No Nausea, No Vomiting, No Abdominal Pain, No Diarrhea, No Constipation, No Melena, No Hematochezia, No Other Genitourinary: No Dysuria, No Frequency, No Incontinence, No Hematuria, No Retention, No Other Musculoskeletal: other (Right upper leg and hip pain.) Skin: No Rash, No Lesions, No Jaundice, No Bruising, No Other Objective Vitals Vital Signs Date Time Temp Pulse Resp B/P (MAP) Pulse Ox O2 Delivery O2 Flow Rate FiO2 01/22/25 10:06 98.2 91 19 154/88 (110) 92 98.2 01/22/25 08:00 Nasal Cannula* 2 28 Intake/Output Intake and Output 01/22/25 07:00 Intake Total 1700 ml Output Total 2400 ml Balance -700 ml Intake Oral 1650 ml IV Total 50 ml Output Urine Total 2400 ml Medications Current Medications Medications Dose Ordered Sig/Jimmie Route Start Time Stop Time Status Last Admin Dose Admin Ceftriaxone Sodium 50 ml @ 100 mls/hr DAILY@0400 IV 01/21/25 04:00 01/22/25 05:02 100 MLS/HR Sodium Chloride 10 ml Q8HR IV 01/20/25 06:00 01/22/25 05:02 10 ML Acetaminophen/ Hydrocodone Bitart 1 tab Q4HP PRN PO 01/20/25 04:00 01/22/25 00:07 1 TAB Ondansetron HCl 4 mg Q4HP PRN IV 01/20/25 04:00 01/20/25 05:04 4 MG Docusate Sodium 100 mg BIDPRN PRN PO 01/20/25 04:00 Enoxaparin Sodium 40 mg DAILY SC 01/20/25 10:00 01/21/25 09:54 40 MG Acetaminophen 650 mg Q6HP PRN PO 01/20/25 04:00 Nitroglycerin 0.4 mg Q5MINP PRN SL 01/20/25 04:00 Morphine Sulfate 2 mg Q30M PRN IV 01/20/25 04:00 01/20/25 05:03 2 MG Laboratory Results Laboratory Tests 01/21/25 13:00 Coagulation Test 01/22/25 10:30 Prothrombin Time 10.3 sec (9.3-11.8) Prothrombin Time INR 0.97 (0.9-1.15) Urinalysis Test 01/19/25 23:46 Urine Color Light-yellow (Yellow) Urine Clarity Turbid (Clear) H Urine pH 6.5 (5.0-9.0) Urine Specific [place] 1.033 (1.001-1.035) Urine Protein Trace (Negative) H Urine Ketones Negative (Negative) Urine Blood Negative /uL (Negative) Urine Nitrite Negative (Negative) Urine Bilirubin Negative (Negative) Urine Urobilinogen Normal mg/dL (Negative) Urine Leukocyte Esterase Negative /uL (Negative) Urine RBC 2 /hpf (0 - 4) Urine Microscopic WBC 4 /HPF (0-5) Urine Squamous Epithelial Cells Few /hpf (<5) Urine Bacteria None seen /hpf (None Seen) Urine Mucus Few (None Seen) Urine Yeast (Budding) Occasional /hpf (None Urine Glucose Normal mg/dL (Normal) Microbiology Microbiology Date/Time Source Procedure Growth Status 01/20/25 15:25 Blood Blood Culture - Preliminary NO GROWTH AFTER 24 HOURS OF INCUBATION. Resulted 01/20/25 14:00 Voided Urine Urine Culture - Preliminary Resulted Labs and/or images reviewed: Labs reviewed by me, Image(s) reviewed by me Assessment/Plan Assessment/Plan Acute nondisplaced Subcapital fracture neck of right femur patient getting surgery by Dr Burns today Sepsis secondary to urinary tract infection: Blood cultures negative, urine cultures negative , continue Rocephin Fall with injury Alzheimer disease Generalized weakness Moderate malnutrition Time spent 45 minutes Patient is full code Advanced care planning time 20 minutes [facility] Grand daughter Chaya [phone] bedside Son and POA Bronson [phone] Plan discussed with: Patient My Orders Orders - ALPA JEREZ MD Procedure Category Date Status Time Apply Barrier Cream EVA 01/21/25 In Process 12:43 Cleanse Wound With EVA 01/21/25 In Process Wound Clean 12:43 * Wound Consult CONS 01/21/25 Transmitted Date of Service: Jan 22, 2025 Billing Provider: ALPA JEREZ MD Common Visit Codes: [id number] INP/OBS CARE(HIGH) ALPA JEREZ MD Jan 22, 2025 13:15
[2025-01-22] MEDS: ceFAZolin 2 GM/D5W100ml 100 ML IV ONE (13:20)
[2025-01-22] MEDS: BUPIVACAINE HCL 50 ML ONE (13:30)
[2025-01-22] MEDS: LIDOCAINE W/ EPINEPHRINE 1% 20ML VIAL ONE (13:30)
--- NOTE | 2025-01-22 13:58 | MEDREC ---
[facility] ASP Intervention Section I [facility] ASP Intervention: Deescalate AB based on CS (PLEASE CONSIDER D/C ANTIBIOTIC(S) IN ABSENCE OF BACTERIAL INFECTION) JESSICA GREENE PHARMACIST Jan 22, 2025 13:58
[2025-01-22] MEDS ORDERED: HYDROmorphone HCL 2 MG/ML VL/or syr IV PRN (14:15)
[2025-01-22] MEDS: ceFAZolin 1GM/50ML 50 ML IV SCH (17:00)
--- NOTE | 2025-01-22 19:41 | DVH ---
EXAM: XY C ARM FLUOROSCOPY UP TO 60MIN, XY R HIP COMPLETE XRAY HISTORY: ORIF RIGHT HIP TECHNIQUE: Intraoperative radiographs of the right hip were obtained. FLUOROSCOPY TIME: 94.8 seconds FLUOROSCOPY IMAGES: 3 TOTAL DOSE: 5.68 mGy COMPARISON: None FINDINGS/IMPRESSION: Refer to intraoperative report for further evaluation.
[2025-01-23 01:00] VITALS: BP 131/75; PULSE 98; RESP 18; TEMP 98.8; O2SAT 94
[2025-01-23 07:25] VITALS: PULSE 86
[2025-01-23 08:44] VITALS: BP 134/64; PULSE 91; RESP 20; TEMP 97.9
--- NOTE | 2025-01-23 09:03 | DVHOP2 ---
Operative Report - 2 Report Details Date: 01/22/25 Preop Diagnosis: Right femoral neck fracture Postop Diagnosis: as above Surgeon: Esau Burns MD Direct Support Worker: Ember GARCÍA Anesthesiologist: Tyrone MIGUEL Anesthesia: Mac, Local Implant: Simplifix 2 screws/ locking screw Consent: The patient was informed of the risks and benefits of the procedure. These include but are not limited to complications of anesthesia, postoperative infection, incomplete relief of symptoms, recurrence of symptoms, damage to blood vessels, nerves and tendons, deep venous thrombosis, pulmonary embolism and possible need for repeat surgery in the future. Estimated Blood Loss: 50 cc Name of Procedure Performed Open reduction internal fixation of right hip fracture, intraop fluoro Procedure Details Procedure Details: In the preoperative holding area, the consent was reviewed and the appropriate extremity was verified by the patient and marked with my initials. The patient was then transferred to the operating theatre. Patient was placed on a fracture table. Appropriate anesthesia was induced. All bony prominences were well padded. A time out was performed verifying the side and site of surgery according to standard protocol. Preoperative antibiotics were given. The extremity was then prepped and draped in the usual sterile fashion. Using c-arm, the fracture was reduced using the fracture table and a combination of maneuvers including traction, internal rotation, and flexion. An incision was made over the greater trochanter confirming correct position with c-arm. A guide wire was drilled into the tip of the greater trochanter, centered A to P. We used the starting reamer to gain entry to the femoral canal. A guide pin was then drilled in the center of the femoral head confirmed using fluoroscopy. We placed another guide pin superior. We measured the screw lengths. Using a cannulated drill, we drilled the lateral cortex. The screws were then introduced. Once positioned, we once again confirmed that the screws were with the femoral head and locked proximal screw. The wound was copiously irrigated. No fractures were seen on the rest of the femur. The fascia was closed with #1 Vicryl, the skin closed #2-0 Vicryl, and aurelio. A dry sterile dressing was placed on the patient. The patient was transferred to the recovery room in stable condition. Condition Fair Disposition Still a Patient ESAU BURNS MD Jan 23, 2025 09:03
--- NOTE | 2025-01-23 11:57 | DVHPN2 ---
Reviewed: Care Plan, H&P, Labs, Medications, Previous Orders, Radiology Changes from previous H/P or p: No Changes Eyes: No Pain, No Vision change, No Conjunctivae inflammation, No Eyelid inflammation, No Other, No Redness ENT: No Ear pain, No Ear discharge, No Nose pain, No Nose discharge, No Nose congestion, No Mouth pain, No Mouth swelling, No Throat pain, No Throat swelling, No Other Cardiovascular: No Chest Pain, No Palpitations, No Orthopnea, No Paroxysmal Noc. Dyspnea, No Edema, No Lt Headedness, No Other Respiratory: No Cough, No Dry, No Shortness of breath, No SOB with excertion, No Wheezing, No Hemoptysis, No Pleuritic Pain, No Sputum, No Other Gastrointestinal: No Nausea, No Vomiting, No Abdominal Pain, No Diarrhea, No Constipation, No Melena, No Hematochezia, No Other Genitourinary: No Dysuria, No Frequency, No Incontinence, No Hematuria, No Retention, No Other Musculoskeletal: other (Right upper leg and hip pain.) Skin: No Rash, No Lesions, No Jaundice, No Bruising, No Other Objective Vitals Vital Signs Date Time Temp Pulse Resp B/P (MAP) Pulse Ox O2 Delivery O2 Flow Rate FiO2 01/23/25 08:44 97.9 91 20 134/64 (87) 97.9 01/23/25 08:00 Nasal Cannula* 2 28 01/23/25 01:00 94 Intake/Output Intake and Output 01/23/25 07:00 Intake Total 1025 ml Output Total 875 ml Balance 150 ml Intake Oral 630 ml IV Total 395 ml Output Urine Total 875 ml Medications Current Medications Medications Dose Ordered Sig/Jimmie Route Start Time Stop Time Status Last Admin Dose Admin Ceftriaxone Sodium 50 ml @ 100 mls/hr DAILY@0400 IV 01/21/25 04:00 01/23/25 03:54 100 MLS/HR Sodium Chloride 10 ml Q8HR IV 01/20/25 06:00 01/23/25 06:03 10 ML Acetaminophen/ Hydrocodone Bitart 1 tab Q4HP PRN PO 01/20/25 04:00 01/23/25 10:16 1 TAB Ondansetron HCl 4 mg Q4HP PRN IV 01/20/25 04:00 01/20/25 05:04 4 MG Docusate Sodium 100 mg BIDPRN PRN PO 01/20/25 04:00 Enoxaparin Sodium 40 mg DAILY SC 01/20/25 10:00 01/23/25 10:25 40 MG Acetaminophen 650 mg Q6HP PRN PO 01/20/25 04:00 Nitroglycerin 0.4 mg Q5MINP PRN SL 01/20/25 04:00 Morphine Sulfate 2 mg Q30M PRN IV 01/20/25 04:00 01/20/25 05:03 2 MG Laboratory Results Laboratory Tests 01/21/25 13:00 Urinalysis Test 01/19/25 23:46 Urine Color Light-yellow (Yellow) Urine Clarity Turbid (Clear) H Urine pH 6.5 (5.0-9.0) Urine Specific [place] 1.033 (1.001-1.035) Urine Protein Trace (Negative) H Urine Ketones Negative (Negative) Urine Blood Negative /uL (Negative) Urine Nitrite Negative (Negative) Urine Bilirubin Negative (Negative) Urine Urobilinogen Normal mg/dL (Negative) Urine Leukocyte Esterase Negative /uL (Negative) Urine RBC 2 /hpf (0 - 4) Urine Microscopic WBC 4 /HPF (0-5) Urine Squamous Epithelial Cells Few /hpf (<5) Urine Bacteria None seen /hpf (None Seen) Urine Mucus Few (None Seen) Urine Yeast (Budding) Occasional /hpf (None Urine Glucose Normal mg/dL (Normal) Microbiology Microbiology Date/Time Source Procedure Growth Status 01/20/25 15:25 Blood Blood Culture - Preliminary NO GROWTH AFTER 48 HOURS OF INCUBATION. Resulted 01/20/25 14:00 Voided Urine Urine Culture - Final Complete Labs and/or images reviewed: Labs reviewed by me, Image(s) reviewed by me Assessment/Plan Assessment/Plan Acute nondisplaced Subcapital fracture neck of right femur status post ORIF by on 01/22/2025 Sepsis secondary to urinary tract infection: Blood cultures negative, urine cultures negative , continue Rocephin Fall with injury Alzheimer disease Generalized weakness Moderate malnutrition Time spent 45 minutes Patient is full code Advanced care planning time 20 minutes Patient came from [facility] Grand daughter Chaya [phone] bedside Son and NATHALIEA Bronson [phone] at bedside requesting long-term facility placement for rehab Plan discussed with: Patient Date of Service: Jan 23, 2025 Billing Provider: ALPA JEREZ MD Common Visit Codes: [id number] INP/OBS CARE(HIGH) ALPA JEREZ MD Jan 23, 2025 11:57
--- NOTE | 2025-01-23 12:44 | DVHPN2 ---
Progress Note Progress Note POD#1 Right Hip ORIP IM NAIL S: Patient seen and examined. Pain well controlled / today. Denies chest or shortness of breath. Denies numbness, paresthesias or weakness. O: AFVSS Exam: NAD, a+ox4, unlabored breathing RLE: dressings c/d/I; fires Q/HS/EHL/FHL/TA/GS muscles; SILT L3-S1; BCR; 2+ DP and PT pulses; BCR A/P: POD#1 s/p Right Hip ORIP IM NAIL -IV ABX x 24 hours -DVT ppx: PER MEDICINE TEAM , SCD , MICHAEL WRIGHT -Pain control PER MEDICINE TEAM -WBAT WITH FWW For balance -Dispo: Per Medicine team, Ortho standpoint cleared to Discharge E/M code 57129 ICD 10 code z47 0.89 Plan discussed with: Patient, Other (bedside nurse) Date of Service: Jan 23, 2025 Billing Provider: MEME VALDIVIA Common Visit Codes: [id number] INP/OBS CARE(MOD) MEME VALDIVIA Jan 23, 2025 12:44
[2025-01-23 13:47] VITALS: BP 138/81; PULSE 93; RESP 20; TEMP 97.5; O2SAT 94
[2025-01-23 15:33] LABS: COVID19 ANTIGEN SOFIA FIA NEGATIVE (NEGATIVE)
[2025-01-23 17:41] VITALS: BP 150/79; PULSE 90; RESP 18; TEMP 97.9; O2SAT 94
[2025-01-23 21:00] VITALS: BP 135/77; PULSE 85; RESP 18; TEMP 97.9; O2SAT 95
[2025-01-24 01:00] VITALS: BP 134/62; PULSE 84; RESP 16; TEMP 97.4; O2SAT 95
[2025-01-24 05:00] VITALS: BP 148/79; PULSE 80; RESP 16; TEMP 97.4; O2SAT 97
[2025-01-24 08:00] VITALS: PULSE 75; PULSE 80; RESP 16; O2SAT 97
[2025-01-24 08:30] VITALS: BP 118/73; PULSE 80; RESP 16; TEMP 98; O2SAT 97
[2025-01-24] MEDS: ACETAMINOPHEN 325 MG TAB PO PRN (12:12)
[2025-01-24 12:35] VITALS: BP 133/69; PULSE 71; RESP 16; TEMP 97.6; O2SAT 94
--- NOTE | 2025-01-24 13:24 | DVHPN2 ---
Reviewed: Care Plan, H&P, Labs, Medications, Previous Orders, Radiology Changes from previous H/P or p: No Changes Eyes: No Pain, No Vision change, No Conjunctivae inflammation, No Eyelid inflammation, No Other, No Redness ENT: No Ear pain, No Ear discharge, No Nose pain, No Nose discharge, No Nose congestion, No Mouth pain, No Mouth swelling, No Throat pain, No Throat swelling, No Other Cardiovascular: No Chest Pain, No Palpitations, No Orthopnea, No Paroxysmal Noc. Dyspnea, No Edema, No Lt Headedness, No Other Respiratory: No Cough, No Dry, No Shortness of breath, No SOB with excertion, No Wheezing, No Hemoptysis, No Pleuritic Pain, No Sputum, No Other Gastrointestinal: No Nausea, No Vomiting, No Abdominal Pain, No Diarrhea, No Constipation, No Melena, No Hematochezia, No Other Genitourinary: No Dysuria, No Frequency, No Incontinence, No Hematuria, No Retention, No Other Musculoskeletal: other (Right upper leg and hip pain.) Skin: No Rash, No Lesions, No Jaundice, No Bruising, No Other Objective Vitals Vital Signs Date Time Temp Pulse Resp B/P (MAP) Pulse Ox O2 Delivery O2 Flow Rate FiO2 01/24/25 12:35 97.6 71 16 133/69 (90) 94 97.6 01/23/25 20:00 Nasal Cannula* 2 28 Intake/Output Intake and Output 01/24/25 07:00 Intake Total 910 ml Output Total 800 ml Balance 110 ml Intake Oral 860 ml IV Total 50 ml Output Urine Total 800 ml Medications Current Medications Medications Dose Ordered Sig/Jimmie Route Start Time Stop Time Status Last Admin Dose Admin Ceftriaxone Sodium 50 ml @ 100 mls/hr DAILY@0400 IV 01/21/25 04:00 01/24/25 03:34 100 MLS/HR Sodium Chloride 10 ml Q8HR IV 01/20/25 06:00 01/24/25 06:00 10 ML Acetaminophen/ Hydrocodone Bitart 1 tab Q4HP PRN PO 01/20/25 04:00 01/23/25 10:16 1 TAB Ondansetron HCl 4 mg Q4HP PRN IV 01/20/25 04:00 01/20/25 05:04 4 MG Docusate Sodium 100 mg BIDPRN PRN PO 01/20/25 04:00 Enoxaparin Sodium 40 mg DAILY SC 01/20/25 10:00 01/24/25 10:17 40 MG Acetaminophen 650 mg Q6HP PRN PO 01/20/25 04:00 01/24/25 12:12 650 MG Nitroglycerin 0.4 mg Q5MINP PRN SL 01/20/25 04:00 Morphine Sulfate 2 mg Q30M PRN IV 01/20/25 04:00 01/20/25 05:03 2 MG Laboratory Results Laboratory Tests 01/21/25 13:00 Urinalysis Test 01/19/25 23:46 Urine Color Light-yellow (Yellow) Urine Clarity Turbid (Clear) H Urine pH 6.5 (5.0-9.0) Urine Specific [place] 1.033 (1.001-1.035) Urine Protein Trace (Negative) H Urine Ketones Negative (Negative) Urine Blood Negative /uL (Negative) Urine Nitrite Negative (Negative) Urine Bilirubin Negative (Negative) Urine Urobilinogen Normal mg/dL (Negative) Urine Leukocyte Esterase Negative /uL (Negative) Urine RBC 2 /hpf (0 - 4) Urine Microscopic WBC 4 /HPF (0-5) Urine Squamous Epithelial Cells Few /hpf (<5) Urine Bacteria None seen /hpf (None Seen) Urine Mucus Few (None Seen) Urine Yeast (Budding) Occasional /hpf (None Urine Glucose Normal mg/dL (Normal) Microbiology Microbiology Date/Time Source Procedure Growth Status 01/20/25 15:25 Blood Blood Culture - Preliminary NO GROWTH AFTER 72 HOURS OF INCUBATION. Resulted 01/20/25 14:00 Voided Urine Urine Culture - Final Complete Labs and/or images reviewed: Labs reviewed by me, Image(s) reviewed by me Assessment/Plan Assessment/Plan Acute nondisplaced Subcapital fracture neck of right femur status post ORIF by on 01/22/2025 Sepsis secondary to urinary tract infection: Blood cultures negative, urine cultures negative , continue Rocephin Fall with injury Alzheimer disease Generalized weakness Moderate malnutrition Patient is ambulating with the help Cleared for discharge by orthopedic Plan discussed with: Patient My Orders Orders - ALPA JEREZ MD Procedure Category Date Status Time * Reconciliation Manager CONS 01/24/25 Transmitted Consult D/C Sitter ORDERS 01/24/25 Transmitted 10:00 Communication Order ORDERS 01/24/25 Transmitted 10:00 Date of Service: Jan 24, 2025 Billing Provider: ALPA JEREZ MD Common Visit Codes: [id number] INP/OBS CARE(HIGH) ALPA JEREZ MD Jan 24, 2025 13:24
--- NOTE | 2025-01-24 13:29 | DVHDS2 ---
Discharge Summary Date of Admission Jan 20, 2025 at 03:56 Date of Discharge: Jan 24, 2025 Admitting Diagnosis Right femur fracture Wounds: ORIF right femur fracture Labs/Diagnostic Data: Laboratory Results Test 01/23/25 13:30 01/22/25 10:30 01/21/25 13:00 01/20/25 00:56 SARS-CoV-2 Antigen (Rapid) Negative (NEGATIVE) Prothrombin Time 10.3 sec (9.3-11.8) Prothrombin Time INR 0.97 (0.9-1.15) White Blood Count 8.0 10^3/uL (4.4-10.8) Red Blood Count 4.53 10^6/uL (4.0-5.20) Hemoglobin 13.0 g/dL (12.2-16.2) Hematocrit 39.1 % (36.0-46.0) Mean Corpuscular Volume 86.3 fL (80.0-100.0) Mean Corpuscular Hemoglobin 28.7 pg (28.0-32.0) Mean Corpuscular Hemoglobin Concent 33.2 g/dL (32.0-36.0) Red Cell Distribution Width 13.9 % (11.8-14.3) Platelet Count 194 10^3/uL (140-450) Mean Platelet Volume 7.7 fL (6.9-10.8) Neutrophils (%) (Auto) 78.2 % (37.0-80.0) Lymphocytes (%) (Auto) 13.8 % (10.0-50.0) Monocytes (%) (Auto) 6.9 % (0.0-12.0) Eosinophils (%) (Auto) 0.7 % (0.0-7.0) Basophils (%) (Auto) 0.4 % (0.0-2.0) Neutrophils # (Auto) 6.3 10 ^3/uL (1.6-8.6) Lymphocytes # (Auto) 1.1 10 ^3/uL (0.4-5.4) Monocytes # (Auto) 0.6 10 ^3/uL (0-1.3) Eosinophils # (Auto) 0.1 10 ^3/uL (0-0.8) Basophils # (Auto) 0 10 ^3/uL (0-0.2) Nucleated Red Blood Cells 0.1 % Sodium Level 139 mmol/L (136-145) Potassium Level 3.9 mmol/L (3.5-5.1) Chloride Level 102 mmol/L (98-107) Carbon Dioxide Level 30 mmol/L (20-31) Anion Gap 7 (5-15) Blood Urea Nitrogen 14 mg/dL (9-23) Creatinine 0.66 mg/dL (0.550-1.02) Glomerular Filtration Rate Calc 86 mL/min (>90) BUN/Creatinine Ratio 21.2 (10.0-20.0) Serum Glucose 111 mg/dL (74-106) Calcium Level 9.2 mg/dL (8.7-10.4) Total Bilirubin 0.7 mg/dL (0.2-1.0) Aspartate Amino Transferase (AST) 25 U/L (13-40) Alanine Aminotransferase (ALT) 13 U/L (7-40) Alkaline Phosphatase 66 U/L (46-116) Total Protein 6.3 g/dL (5.7-8.2) Albumin 3.8 g/dL (3.2-4.8) Troponin I High Sensitivity 4 ng/L (</=34) Test 01/19/25 23:55 01/19/25 23:46 Lactic Acid Level 1.1 mmol/L (0.4-2.0) Urine Color Light-yellow (Yellow) Urine Clarity Turbid (Clear) Urine pH 6.5 (5.0-9.0) Urine Specific [place] 1.033 (1.001-1.035) Urine Protein Trace (Negative) Urine Ketones Negative (Negative) Urine Blood Negative /uL (Negative) Urine Nitrite Negative (Negative) Urine Bilirubin Negative (Negative) Urine Urobilinogen Normal mg/dL (Negative) Urine Leukocyte Esterase Negative /uL (Negative) Urine RBC 2 /hpf (0 - 4) Urine Microscopic WBC 4 /HPF (0-5) Urine Squamous Epithelial Cells Few /hpf (<5) Urine Bacteria None seen /hpf (None Seen) Urine Mucus Few (None Seen) Urine Yeast (Budding) Occasional /hpf (None Urine Glucose Normal mg/dL (Normal) Other Laboratory Tests 01/21/25 13:00 Brief Hx & Hospital Course: 84-year-old female brought to the ER after mechanical fall. Found to have nondisplaced subcapital fracture neck right femur underwent ORIF by Dr Burns on 01/22/2025. Mild UTI treated with Rocephin blood cultures negative urine cultures negative patient has Alzheimer dementia. Patient has had physical therapy and [facility] The plan is agreeable with the patient's son Bronson Consults/Reason for consult Orthopedic Dr Burns Operations or Procedures ORIF right femur fracture Condition at Discharge: Fair Final Diagnosis/Problems List Acute nondisplaced Subcapital fracture neck of right femur status post ORIF by on 01/22/2025 Sepsis secondary to urinary tract infection: Blood cultures negative, urine cultures negative , treated with Rocephin Fall with injury Alzheimer disease Generalized weakness Moderate malnutrition Discharge Disposition: Intermediate Facility Discharge Instruct/Medications Diet: Regular Activity: See Comment Activity comment: Weight-bearing as tolerated right lower extremity Follow Up/Referral: Follow up with the detention Medications: see list Discharge Statement: "Patient was advised to return to the ER or call 911 if any headaches, dizziness, shortness of breath, chest pain, abdominal pain, bleeding, fevers, or worsening of medical condition. Patient was counseled about treatment plan, medications, possible side effects, patientverbalized understanding. All questions were answered to the best of my ability. This discharge took greater then 30 minutes in planning, reviewing documentation, counseling the patient, and discussing with other team members." ASSESSMENT ASSESSMENT Hospital Course Improved Assessment Acute nondisplaced Subcapital fracture neck of right femur status post ORIF by on 01/22/2025 Sepsis secondary to urinary tract infection: Blood cultures negative, urine cultures negative , treated with Rocephin Fall with injury Alzheimer disease Generalized weakness Moderate malnutrition Date of Service: Jan 24, 2025 Billing Provider: ALPA JEREZ MD Common Visit Codes: [id number] DISCH DAY >30min ALPA JEREZ MD Jan 24, 2025 13:28
[2025-01-24 16:39] VITALS: BP 156/70; PULSE 75; RESP 16; TEMP 98.7; O2SAT 94
--- NOTE | 2025-02-01 15:52 | DVHSR ---
APPROVED REPORT EXAM: Two-dimensional and M-mode echocardiogram with Doppler and color Doppler. Blood Pressure: 123/62 mmHg INDICATION Pre-Op Dementia, poor historian RISK FACTORS Height: 60, Weight: 130 DIMENSIONS LVDd (3.8-5.7cm)LA (2D) (1.9-4.0cm)Aortic Root3.3 (2.0-3.7cm) LVDs (2.5-4.0cm)LA (MM) (1.9-4.0cm)Aortic Cusp Exc1.5 (1.5-2.0cm) EF (%) 58.0 (55-70%)Rt. Atrium (1.9-4.0cm)Asc. Aorta cm Mitral Valve MitralMitral Stenosis E wave0.49m/sMV Mean GR.mmHg A wave0.74m/sMV Peak GR.mmHg E/A ratio0.72D MVAcm2 DECEL [id number] 1/2 Hygg90hi IVRTmsDop MVA2.84cm2 Aortic Valve Aortic ValveAortic Stenosis V11.02m/Thomas Mean GR.4mmHg V21.46m/Thomas Peak GR.9mmHg LVOT Diameter1.6 (1.8-2.4cm)Doppler AVA1.40cm2 AI P 1/2 Vnfe776.16ms Tricuspid Valve TR Velocity2.25m/s [id number] Other Information Technically limited study due to body habitus. Patient was laying flat on her back during exam. Conclusion lvef 65% MILD lvh MILD AORTIC REGURG normal rv functin normal atria
== END 2025-01-24 18:31 | DRG 853 ==
LOC: ER 20:51 → EDBD 20:51 → OVERFLOW 01-20 03:56 → TELE-WESTW 01-20 16:00
PROVIDERS: ADMIT Family Medicine; ATTEND Family Medicine
PROC: 0QS604Z Reposition Right Upper Femur with Internal Fixation Device, Open Approach (ICD-10-PCS; principal; 2025-01-22 13:08)
DX: A41.9 Sepsis, unspecified organism (principal); S72.011A Unspecified intracapsular fracture of right femur, initial encounter for closed fracture; E44.0 Moderate protein-calorie malnutrition; N39.0 Urinary tract infection, site not specified; D72.829 Elevated white blood cell count, unspecified; Z20.822 Contact with and (suspected) exposure to COVID-19; G30.9 Alzheimer's disease, unspecified; F02.80 Dementia in other diseases classified elsewhere, unspecified severity, without behavioral disturbance, psychotic disturbance, mood disturbance, and anxiety; Z68.27 Body mass index [BMI] 27.0-27.9, adult; Z79.899 Other long term (current) drug therapy; Z82.5 Family history of asthma and other chronic lower respiratory diseases; W01.0XXA Fall on same level from slipping, tripping and stumbling without subsequent striking against object, initial encounter; Y93.89 Activity, other specified; Y92.099 Unspecified place in other non-institutional residence as the place of occurrence of the external cause; Y99.8 Other external cause status
CPT/HCPCS: 36415; 71045; 73502; 73700; 76000; 80053; 81001; 83605; 84484; 85025; 85610; 86850; 86900; 86901; 87040; 87086; 87426; 93306; 96374; 96375; 97110; 97116; 97163; G0378; J2250; J2405; J2704; J3490